=== PATIENT | female | born 1960 | race Caucasian/White ===

== ENCOUNTER 2020-12-27 13:29 | Emergency (ER) | payer OTHER ==
[2020-12-27] MEDS ORDERED: IBUPROFEN 600 MG TABLET (FP) PO ONE ×2 (13:34→13:45)
[2020-12-27 13:43] VITALS: BP 139/77; PULSE 72; TEMP 98.2; BMI 26.0
== END 2020-12-27 15:41 | disposition home or self-care (01) ==
LOC: FER 13:29
PROC: 2W3RX1Z Immobilization of Left Lower Leg using Splint (ICD-10-PCS; principal; 2020-12-27)
DX: M79.672 Pain in left foot (principal); S93.402A Sprain of unspecified ligament of left ankle, initial encounter
CPT/HCPCS: 73610-TC-LT-FY; 73630-TC-LT; 99283-25